=== PATIENT | male | born 1965 | race Caucasian/White ===

== ENCOUNTER → 2017-11-24 | Day surgery (SDC) | payer OTHER ==
[~2017-11-24] VITALS: Ht 177.8 cm; Wt 91.7 kg
[~2017-11-24] MED LIST: *ONDANSETRON 4 MG VIAL PERIprocedural Use ONLY ONE; ACETAMINOPHEN/HYDROcodone 325 MG/7.5 MG TAB ONE; ACETAMINOPHEN/HYDROcodone 325 MG/7.5 MG TAB PO PRN; BUPIVACAINE/EPINEPHRINE 0.25% PF 30 ML VIAL ONE; CHLORHEXIDINE GLUCONATE 2 % 1 PACK (2 CLOTHS) TOPICAL PRN; CHLORHEXIDINE GLUCONATE 4% SOLN 120 ML BTL TOPICAL SCH; DEXAMETHASONE SOD PHOS 4 MG/ML VIAL IV ONE; DO NOT ADM ANY ANTICOAGULANT DRUGS PRN; GENTAMICIN SULFATE 80 MG/2 ML VIAL ONE; GLYCOPYRROLATE 1 MG/5 ML SYRINGE IV PUSH ONE; HYDR25TA5 PO; HYDROmorphone HCL PF 2 MG/ML VIAL ONE; LACTATED RINGER'S 1000 ML INJ 1,000 ML IV ONE; LACTATED RINGER'S 1000 ML IV PRN; LIDOCAINE HCL 1% PF 5 ML SYRINGE OTHER ONE; LOSA100T PO; MELO15TA20 PO; METOPROLOL TARTRATE 25 MG TAB PO PRN; MIDAZOLAM HCL 2 MG/2 ML VIAL ONE; NEOSTIGMINE 5 MG/5 ML SYRINGE IV PUSH ONE; OMEP20TA93 PO; ONDANSETRON HCL 4 MG/2 ML VIAL IV ONE; PHENYLEPH/NS 1000 MCG/10 ML SYR IV ONE; POVIDONE IODINE 5% (ANTISEPSIS KIT) 4 APPLICATIONS EACH NARE PRN; PROPOFOL 200 MG/20 ML AMP IV ONE; ROCURONIUM INJ 50 MG/5 ML SYRINGE IV PUSH ONE; SODIUM CHLORID 0.9% 500 ML IV PRN; TEST1INJ3 IM; ceFAZolin 1,000 MG/NS 100 ML IV SCH; ceFAZolin INJ 1,000 MG VIAL IV ONE
--- NOTE | 2017-11-24 15:39 | RADRPT ---
EXAM DATE/TIME: 11/24/2017 13:47 [facility] COMPARISON: FLUOROSCOPY PORTABLE UP TO 1HR, November 24, 2017, 0:00. INDICATIONS : Lower back pain, L4-L5 laminectomy. MEDICAL HISTORY : None. SURGICAL HISTORY : None. ENCOUNTER: Initial ACUITY: 1 day PAIN SCORE: Non-responsive. LOCATION: lumbar FINDINGS: Level localization film demonstrates hardware directed at the L4-5 level. There is a degenerated disc at this level. CONCLUSION: 1. Localization film demonstrates surgical instrumentation at the L4-5 level. Jorge Mcgrath MD on November 24, 2017 at 15:36 Board Certified Radiologist. This report was verified electronically.
[2017-11-24 15:55] VITALS: BP 108/74; PULSE 80; RESP 16; TEMP 97.8; O2SAT 96
--- NOTE | 2017-11-24 21:39 | EKG ---
Date Performed: 11/24/2017 Time Performed: 09:49:37 PTAGE: 52 years EKG: Sinus rhythm NORMAL ECG NO PREVIOUS TRACING DOCTOR: Cornell Cueva Interpretating Date/Time 11/24/2017 21:39:19
--- NOTE | 2017-11-28 09:31 | MP ---
cc: SCOTT BAEZA M.D., ELIZABETH M. MD DATE OF SURGERY: 11/24/2017 PREOPERATIVE DIAGNOSIS: 1. L4-5 moderately severe spinal stenosis. 2. Right greater left lumbar radiculitis with lower extremity weakness. 3. Lumbar spine degenerative disk disease, osteoarthritis. POSTOPERATIVE DIAGNOSIS: 1. L4-5 moderately severe spinal stenosis. 2. Right greater left lumbar radiculitis with lower extremity weakness. 3. Lumbar spine degenerative disk disease, osteoarthritis. OPERATIVE PROCEDURE PERFORMED: L4-5 bilateral decompressive hemilaminectomy, foraminotomy, partial facetectomy with decompression nerve roots. SURGEON: Scott Baeza MD. TRIP FOLLOWER: Netta Schwartz PA-C. ANESTHESIA: General. ESTIMATED BLOOD LOSS: 75 mL. COMPLICATIONS: None. DRAINS: None. SPECIMEN: None. CONDITION: Stable. PLAN OF ACTIVITY: As per orders. DESCRIPTION OF THE PROCEDURE IN DETAIL: My maintenance assistant, Netta Schwartz PA-C was present for the entire surgical case. She was medically necessary for the entire case because of the complexity of the case and to facilitate the performance of the procedure. The REPRESENT[employer]IVE [employer] was at the back table did not have the skill set for this case to manipulate the instruments; e.g., the multiple different types of soft tissue retractors and nerve retractors. The patient was brought into the operating room and had satisfactory general anesthesia by the department of anesthesia. The patient was carefully transferred onto the [facility] Spinal Frame. All pressure points were well-padded. The lumbosacral spine was prepped and draped in the usual sterile manner. A localizing x-ray by fluoroscopy was used to confirm the L4-5 interspace. Local anesthesia was used to anesthetize the operative site to provide postoperative hemostasis and also analgesia. A small midline incision made over L4-5. Dissection was taken through the skin and soft tissue. The paraspinal muscles were gently removed from the posterior elements bilaterally at L4-5. Again, a localizing x-ray was used throughout the operative case to again confirm the L4-5 interspace. Bilateral decompressive hemilaminectomy was performed at L4-5. The patient was found to have moderately severe spinal stenosis with moderately severe right greater than left foraminal stenosis. With decompression, foraminotomies, partial facetectomy, the patient had a very satisfactory decompression of the neurological elements. The wound was irrigated with copious amounts of sterile saline and antibiotic solution. The wound itself was dry. There was no evidence of any cerebrospinal fluid leak or bleeding. The wound was closed in multiple layers. The fascia was closed with a #2 TiCron suture, subcutaneous layers with #0 Vicryl and 2-0 Vicryl. Skin was approximated with running subcuticular 3-0 Vicryl suture. Dermabond was placed on the incision. Sterile dressings were applied. The patient tolerated the procedure well and went to the recovery room in stable and satisfactory condition. MD DILCIA Avila/CRESCENCIO /2:21 PM /9:26 AM
== END | disposition home or self-care (01) ==
LOC: HSDC 09:06
PROVIDERS: ATTEND Orthopaedic Surgery Orthopaedic Surgery of the Spine
DX: M51.16 Intervertebral disc disorders with radiculopathy, lumbar region (principal); M48.061 Spinal stenosis, lumbar region without neurogenic claudication; I10 Essential (primary) hypertension
CPT/HCPCS: 00630; 63030; 72020; 76000; 93005; J0690; J1100; J1580; J2250; J2370; J2405; J2710; J3010; J7120; J1170